=== PATIENT | male | born 1935 | race Caucasian/White ===

== ENCOUNTER 2019-01-11 21:47 | Emergency (ER) | payer MEDICARE, BC ==
[2019-01-12 01:54] LABS: Hematocrit 37 % (42-52); Hemoglobin 11.9 g/dL (14.0-18.0); Mean Corpuscular HGB Conc 32 g/dL (31-36); Mean Corpuscular Hemoglobin 24 pg (27-31); Mean Corpuscular Volume 74 fL (80-94); Mean Platelet Volume 7.5 fL (7.4-10.4); Platelet Count 358 10^3/uL (150-450); Red Blood Count 5.01 10^6 /uL (4.18-5.48); Red Cell Distribution Width 16 % (10-15); White Blood Count 25.9 10^3/uL (3.5-10.8)
[2019-01-12 02:05] LABS: Albumin 3.6 g/dL (3.2-5.2); Albumin/Globulin Ratio 1.4 (1-3); BUN/Creatinine Ratio 26.8 (8-20); C Reactive Protein 20.6 mg/L (<8.01); Calcium 9.3 mg/dL (8.6-10.3); EGFR African American 57.3 (>60); EGFR Non-African American 47.4 (>60); Globulin 2.5 g/dL (2-4); Potassium 4.6 mmol/L (3.5-5.0); Total Bilirubin 0.6 mg/dL (0.2-1.0); Total Protein 6.1 g/dL (6.4-8.9)
[2019-01-12] MEDS ORDERED: Morphine 4 MG/ML VIAL (1 ml) 4 MG/ML VIAL IV ONE ×4 (02:07→09:54)
[2019-01-12] MEDS ORDERED: NS 0.9% 1000 ML** 1,000 ML IV ONE (02:08)
[2019-01-12] MEDS ORDERED: Ondansetron INJ* 2 MG/ML VIAL IV ONE (02:08)
[2019-01-12] MEDS ORDERED: Iodixanol* (CONTRAST) 320 MG/ML 100 ML SDV IV ONE (02:10)
[2019-01-12 02:37] LABS: ABS Lymphocytes 0.9 10^3/ul (1.0-4.8); ABS Monocytes 0.4 10^3/ul (0-0.8); ABS Neutrophils 24.6 10^3/ul (1.5-7.7); Lymphocyte % 3.4 %
--- NOTE | 2019-01-12 03:08 | ED ---
Abdominal Pain/Male - HPI Summary HPI Summary: Patient complains of sudden onset bilateral upper abdominal pain starting today. For p.m. with one episode of nausea lasting 2 hours. History of lymphoma with last chemotherapy treatment 2.5 weeks ago. Abdominal pain associated with nausea. Worse with movement, decreased with rest. Finished prednisone 12 days ago. Denies fever, cough, sore throat, CP, SOB, V/D, change in urine, testicular or penile symptoms. Oncologist Dr. Stack at [facility]. - History of Current Complaint Chief Complaint: EDAbdPain Stated Complaint: ABD PAIN PER PT Time Seen by Provider: 01/12/19 01:05 Hx Obtained From: Patient Onset/Duration: Sudden Onset Timing: Constant Severity Initially: Severe Severity Currently: Severe Pain Intensity: 8 Pain Scale Used: 0-10 Numeric Location: Discrete At: RUQ, Discrete At: LUQ, Epigastric Radiates: No Character: Sharp Aggravating Factor(s): Movement Alleviating Factor(s): Position Associated Signs And Symptoms: Positive: Negative - Allergies/Home Medications Allergies/Adverse Reactions: Allergies Allergy/AdvReac Type Severity Reaction Status Date / Time No Known Allergies Allergy Verified 03/20/13 06:57 PMH/Surg Hx/FS Hx/Imm Hx Endocrine/Hematology History: Denies: Hx Diabetes Cardiovascular History: Reports: Hx Angina - SELDOM, VERY MILD Denies: Hx Hypertension, Other Cardiovascular Problems/Disorders Respiratory History: Denies: Other Respiratory Problems/Disorders History: Denies: Hx Renal Disease Musculoskeletal History: Denies: Other Musculoskeletal History Sensory History: Reports: Hx Cataracts - WENDY, Hx Contacts or Glasses - GLASSES, Hx Hearing Aid - RIGHT ONLY Opthamlomology History: Reports: Hx Cataracts - WENDY, Hx Contacts or Glasses - GLASSES Neurological History: Denies: Hx Dementia Psychiatric History: Denies: Hx Autism - Surgical History Surgery Procedure, Year, and Place: HERNIA, 1997, [facility] Hx Anesthesia Reactions: No Infectious Disease History: No Infectious Disease History: Denies: Traveled Outside the [place] in Last 30 Days - Family History Known Family History: Positive: None - Social History Alcohol Use: None Substance Use Type: Reports: None Smoking Status (MU): Never Smoked Tobacco Review of Systems Constitutional: Negative Eyes: Negative ENT: Negative Cardiovascular: Negative Respiratory: Negative Positive: Abdominal Pain, Nausea Genitourinary: Negative Musculoskeletal: Negative Skin: Negative Neurological: Negative Psychological: Normal All Other Systems Reviewed And Are Negative: Yes Physical Exam - Summary Physical Exam Summary: Abdomen tender to palpation in all other quadrants. Normal exam and lower quadrants. Lung sounds clear to auscultation bilaterally. Triage Information Reviewed: Yes Vital Signs On Initial Exam: Initial Vitals Temp Pulse Resp BP Pulse Ox 97.9 F 88 20 170/74 97 01/11/19 21:48 01/11/19 21:48 01/11/19 21:48 01/11/19 21:48 01/11/19 21:48 Vital Signs Reviewed: Yes Appearance: Positive: Well-Appearing Skin: Positive: Warm Head/Face: Positive: Normal Head/Face Inspection Eyes: Positive: Normal ENT: Positive: Normal ENT inspection Neck: Positive: Supple Respiratory/Lung Sounds: Positive: Clear to Auscultation Cardiovascular: Positive: Normal Abdomen Description: Positive: Other: Musculoskeletal: Positive: Normal Neurological: Positive: Normal Psychiatric: Positive: Normal AVPU Assessment: Alert - Meir Coma Scale Best Eye Response: 4 - Spontaneous Best Motor Response: 6 - Obeys Commands Best Verbal Response: 5 - Oriented Coma Scale Total: 15 Diagnostics - Vital Signs Vital Signs Temp Pulse Resp BP Pulse Ox 01/12/19 02:33 16 01/12/19 01:54 99.5 F 01/12/19 01:37 89 16 148/70 95 01/12/19 01:07 79 25 122/61 94 01/12/19 01:00 80 27 95 01/12/19 00:39 82 21 97 01/12/19 00:37 82 19 162/78 97 01/11/19 21:48 97.9 F 88 20 170/74 97 - Laboratory Lab Results: Lab Results 01/12/19 01/12/19 Range/Units 01:35 01:35 WBC 25.9 H (3.5-10.8) 10^3/uL RBC 5.01 (4.18-5.48) 10^6 /uL Hgb 11.9 L (14.0-18.0) g/dL Hct 37 L (42-52) % MCV 74 L (80-94) fL MCH 24 L (27-31) pg MCHC 32 (31-36) g/dL RDW 16 H (10-15) % Plt Count 358 (150-450) 10^3/uL MPV 7.5 (7.4-10.4) fL Neut % (Auto) 94.7 % Lymph % (Auto) 3.4 % [place] % (Auto) 1.7 % Eos % (Auto) 0.0 % Baso % (Auto) 0.2 % Absolute Neuts (auto) 24.6 H (1.5-7.7) 10^3/ul Absolute Lymphs (auto) 0.9 L (1.0-4.8) 10^3/ul Absolute Monos (auto) 0.4 (0-0.8) 10^3/ul Absolute Eos (auto) 0.0 (0-0.6) 10^3/ul Absolute Basos (auto) 0.0 (0-0.2) 10^3/ul Absolute Nucleated RBC 0.0 10^3/ul Nucleated RBC % 0.0 Sodium 136 (135-145) mmol/L Potassium 4.6 (3.5-5.0) mmol/L Chloride 103 (101-111) mmol/L Carbon Dioxide 24 (22-32) mmol/L Anion Gap 9 (2-11) mmol/L BUN 38 H (6-24) mg/dL Creatinine 1.42 H (0.67-1.17) mg/dL Est GFR ( Amer) 57.3 (>60) Est GFR (Non-Af Amer) 47.4 (>60) BUN/Creatinine Ratio 26.8 H (8-20) Glucose 151 H (70-100) mg/dL Calcium 9.3 (8.6-10.3) mg/dL Total Bilirubin 0.60 (0.2-1.0) mg/dL AST 14 (13-39) U/L ALT 12 (7-52) U/L Alkaline Phosphatase 95 (34-104) U/L C-Reactive Protein 20.60 H (<8.01) mg/L Total Protein 6.1 L (6.4-8.9) g/dL Albumin 3.6 (3.2-5.2) g/dL Globulin 2.5 (2-4) g/dL Albumin/Globulin Ratio 1.4 (1-3) Lipase 40 (11.0-82.0) U/L Result Diagrams: 01/12/19 01:35 06/29/19 01:35 Lab Statement: Any lab studies that have been ordered have been reviewed, and results considered in the medical decision making process. Re-Evaluation - Re-Evaluation First Eval Re-Evaluation Time: 07:50 Comment: Discussed transfer with patient. Abdominal Pain Male Course/Dx - Course Course Of Treatment: Patient complains of sudden onset bilateral upper abdominal pain starting today. For p.m. with one episode of nausea lasting 2 hours. History of lymphoma with last chemotherapy treatment 2.5 weeks ago. Abdominal pain associated with nausea. Worse with movement, decreased with rest. Finished prednisone 12 days ago. Denies fever, cough, sore throat, CP, SOB, V/D, change in urine, testicular or penile symptoms. Oncologist Dr. Stack at [facility]. Vital signs within normal limits. WBC 25.9. BUN 38. Creatinine 1.42. Labs otherwise within normal limits. Patient signed out to Dr. Plata pending results of CT abdomen and pelvis. - Diagnoses Provider Diagnoses: SBO (small bowel obstruction), Lymphoma Discharge - Sign-Out/Discharge Documenting (check all that apply): Sign-Out Patient Signing out patient TO: Gilda Plata - Discharge Plan Condition: Good Disposition: TRANS HIGHER LVL OF CARE FAC Referrals: Singh Emerson MD [Primary Care Provider] - - Billing Disposition and Condition Condition: GOOD Disposition: Trans Higher Lvl of Care Fac
--- NOTE | 2019-01-12 04:26 | ED ---
Progress - Progress Note Progress Note: This pt was signed out from [facility], pending disposition, awaiting CT abdomen/pelvis. CT abdomen/pelvis, as read by radiologist IMPRESSION: 1. Cholelithiasis. 2. Soft tissue infiltration or confluence in the retroperitoneum and throughout much of the mesentery encasing multiple retroperitoneal and mesenteric vascular structures as well as encasing many small bowel segments. Etiology is uncertain and may reflect neoplastic infiltration. Amyloidosis may be a consideration. 3. Minimal bullous change with minimal bibasilar fibro-atelectatic change. 4. Left renal atrophy with delayed excretion and relatively poor function. There is minimal left hydronephrosis and hydroureter which extends into the retroperitoneal confluence and is likely related to left ureteral involvement by the process. 5. Borderline distention of small bowel segments with air-fluid levels primarily in the left abdomen. The distal small bowel is collapsed and findings suggest relative small bowel obstruction. The definite point of transition is not identified but is likely related to the mesenteric confluence and encasement. 6. No bilateral spondylolysis L5 with grade 2 anterior listhesis. 7. 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 Dr. Plata has reviewed this report. Physical Exam: VITAL SIGNS: Reviewed. GENERAL: Patient is a well-developed and nourished male who is lying comfortable in the stretcher. Patient is not in any acute respiratory distress. HEAD AND FACE: No signs of trauma. No ecchymosis, hematomas or skull depressions. No sinus tenderness. EYES: PERRLA, EOMI x 2, No injected conjunctiva, no nystagmus. EARS: Hearing grossly intact. Ear canals and tympanic membranes are within normal limits. MOUTH: Oropharynx within normal limits. NECK: Supple, trachea is midline, no adenopathy, no JVD, no carotid bruit, no c- spine tenderness, neck with full ROM. CHEST: Symmetric, no tenderness at palpation LUNGS: Clear to auscultation bilaterally. No wheezing or crackles. CVS: Regular rate and rhythm, S1 and S2 present, no murmurs or gallops appreciated. ABDOMEN: Soft, tenderness on the left side of the abdomen. Distended abdomen with hyperactive bowel sounds. No rebound no guarding, and no masses palpated. EXTREMITIES: FROM in all major joints, no edema, no cyanosis or clubbing. NEURO: Alert and oriented x 3. No acute neurological deficits. Speech is normal and follows commands. SKIN: Dry and warm Course/Dx - Course Course Of Treatment: This pt was signed out by [facility] Foote, pending CT results. Pt diagnosed with lymphoma recently. His last chemotherapy was 3 weeks ago. His oncologist is Dr. Stack in [place]. Pt is on neulasta patch. He c/ o of abdominal pain since 16:00 yesterday with associated nausea. On physical exam, pt has tenderness on the left side of the abdomen, distended abdomen with hyperactive bowel sounds. Discussed the case with Dr. Morales, surgeon, who will come see the pt in the ED. Dr. Morales reports the pt would like to be transferred to [facility]. Pt will be signed out to Dr. Damon pending transfer. - Diagnoses Provider Diagnoses: SBO (small bowel obstruction) - Provider Notifications Discussed Care Of Patient With: Sebastián Morales - surgeon Time Discussed With Above Provider: 05:50 Instructed by Provider To: MD Will See In ED Discharge - Sign-Out/Discharge Documenting (check all that apply): Sign-Out Patient, Receiving Sign-Out Signing out patient TO: Diallo Damon - pending transfer Receiving patient FROM: Kendell Le Patient Received Moderate/Deep Sedation with Procedure: No - Discharge Plan Condition: Stable Referrals: Singh Emerson MD [Primary Care Provider] - - Attestation Statements Document Initiated by Scribe: Yes Documenting Scribe: Kaye Arreola Provider For Whom Scribe is Documenting (Include Credential): Gilda Plata MD Scribe Attestation: I, Kaye Arreola, scribed for Gilda Plata MD on 01/12/19 at 0656. Status of Scribe Document: Ready
[2019-01-12 05:42] LABS: Urine Appearance Clear; Urine Bacteria Absent (Absent); Urine Bilirubin Negative (Negative); Urine Blood Negative (Negative); Urine Color Yellow; Urine Glucose Negative (Negative); Urine Ketones Negative (Negative); Urine Nitrite Negative (Negative); Urine Protein Negative (Negative); Urine Red Blood Cell 1+(3-5/hpf) (Absent); Urine Specific Gravity 1.028 (1.010-1.030); Urine Urobilinogen Negative (Negative); Urine White Blood Cell 1+(6-10/hpf) (Absent)
[2019-01-12] MEDS ORDERED: Piperacillin/Tazobac ADVAN(*) 3.375 GM in NS 0.9% 100 ML* 100 ML IVPB ONE (05:50)
--- NOTE | 2019-01-12 07:13 | ED ---
Progress - Progress Note Progress Note: This patient is a sign-out from Dr. Gilda Plata to Dr. Diallo Damon at shift change on 01/12/2019 at 0700 pending transfer to [facility]. Re-Evaluation - Re-Evaluation First Eval Re-Evaluation Time: 07:50 Comment: Discussed transfer with patient. Course/Dx - Course Course Of Treatment: This patient is a sign-out from Dr. Gilda Plata to Dr. Diallo Damon at shift change on 01/12/2019 at 0700 pending transfer to [facility]. Discussed patient case with Jennifer Hampton NP at [facility] on behalf of Dr. Mir Clay for admission the oncology unit at [facility]. Discussed patient case with Dr. Terence Mcneil, hospitalist, at [facility], who accepted the patient for transfer. Patient will be transferred with diagnosis of small bowel obstruction and lymphoma. Patient understands and agrees with this plan. - Diagnoses Provider Diagnoses: SBO (small bowel obstruction), Lymphoma - Provider Notifications Discussed Care Of Patient With: Jennifer Hampton NP Time Discussed With Above Provider: 07:37 Instructed by Provider To: Transfer - Discussed patient care with Jennifer Hampton NP at [facility] oncology unit on behalf of Dr. Mir Clay for admission to [facility]. At 0800 discussed patient case with Dr. Terence Mcneil , hospitalist, at [facility] who accepted the patient for admission. Discharge - Sign-Out/Discharge Documenting (check all that apply): Patient Departure - Transfer Patient Received Moderate/Deep Sedation with Procedure: No - Discharge Plan Condition: Good Disposition: TRANS HIGHER LVL OF CARE FAC Referrals: Singh Emerson MD [Primary Care Provider] - - Billing Disposition and Condition Condition: GOOD Disposition: Trans Higher Lvl of Care Fac - Attestation Statements Document Initiated by Scribe: Yes Documenting Scribe: Rachid Denton Provider For Whom Kimberly is Documenting (Include Credential): MD Annie Brownibsteven Attestation: Rachid Weathers scribed for Diallo Damon MD on 01/12/19 at 0830. Scribe Documentation Reviewed: Yes Provider Attestation: The documentation as recorded by the Rachid sanders accurately reflects the service I personally performed and the decisions made by me, Diallo Damon MD Status of Scribsteven Document: Viewed
[2019-01-12 10:03] VITALS: BP 113/61
--- NOTE | 2019-01-15 08:01 | PN ---
Progress Note - Progress Note Date of Service: 02/11/19 Note: Faxed over culture and sensitivities to [facility] at 8 AM on 01/15/19
== END 2019-01-12 10:04 | disposition short-term general hospital (02) ==
LOC: ED 21:47
DX: K56.609 Unspecified intestinal obstruction, unspecified as to partial versus complete obstruction (principal); C85.90 Non-Hodgkin lymphoma, unspecified, unspecified site; K80.20 Calculus of gallbladder without cholecystitis without obstruction; N26.1 Atrophy of kidney (terminal)
CPT/HCPCS: 36415; 74177; 80053; 81003; 81015; 83690; 85025; 86140; 87040; 87077; 87086; 87186; 87205; 96361; 96365; 96375; 99285; J2270; J2405; J2543; Q9967